=== PATIENT | male | born 2005 | race Caucasian/White ===

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

== ENCOUNTER 2025-05-01 09:57 | Emergency (ER) | payer BC, SELFPAY ==
[2025-05-01 09:58] VITALS: BP 168/113; PULSE 116; RESP 18; TEMP 35.8; O2SAT 98; BMI 30.6
[2025-05-01 10:18] VITALS: BP 138/82; PULSE 116; RESP 18; O2SAT 97
--- NOTE | 2025-05-01 10:20 | RAD_ITS ---
PROCEDURE: CHEST PA AND LATERAL 05/01/2025 REASON FOR EXAM: CHEST PAIN, SOB/ASTHMA TECHNIQUE: Frontal and lateral views of the chest. COMPARISON: None provided. RAD/Chest PA and Lateral IMPRESSION: LUNGS APPEAR CLEAR THROUGHOUT. NO PLEURAL EFFUSION OR PNEUMOTHORAX IS NOTED. THE CARDIOMEDIASTINAL SILHOUETTE IS WITHIN THE NORMAL RANGE. NO SIGNIFICANT OSSEOUS ABNORMALITY IS NOTED. NEGATIVE EXAMINATION. Reading Location: [id number]
--- NOTE | 2025-05-01 10:24 | EKG12_ITS ---
Test Reason : CP/ANXIETY Blood Pressure : */* mmHG Vent. Rate : 105 BPM Atrial Rate : 105 BPM P-R Int : 148 ms QRS Dur : 94 ms QT Int : 322 ms P-R-T Axes : 72 50 31 degrees QTcB Int : 425 ms Sinus tachycardia Otherwise normal ECG Confirmed by CAROLINA SETH, TOMEKA ([id number]), international editorial producer JARED RIVAS ([id number]) on 05/06/2025 7:11:11 AM Referred By: BB/LALA Confirmed By: TOMEKA FIGUEROA MD
[2025-05-01] MEDS: Lidocaine 2% Viscous15 ML UDC 15 ML PO (10:31)
[2025-05-01] MEDS: Mag Hydrox/Al Hydrox/Simeth 30 ML UDC PO (10:31)
--- NOTE | 2025-05-01 11:13 | EDS_ITS ---
HPI History of Present Illness Chief Complaint: Chest Pain Informant: patient Narrative Narrative: 20-year-old male woke up with wheezing this morning, he has a history of mild intermittent asthma that he rarely has to deal with. He got to work and asked someone for their inhaler to use, which he then did, and felt better. About 30 minutes later he started gradually getting retrosternal chest pain/burning that progressed. Nonpleuritic. No dyspnea. No palpitations. No radiation. Has been persistent for an hour or 2. States his wheezing is better denies any cough or fevers. [facility] Medical History Physical exam, pre-employment Anxiety Asthma Home Medications ?Medication ?Instructions ?Recorded ?Last Taken ?Type albuterol sulfate 90 mcg/actuation 1 - 2 puff inhalati on Q4H PRN PRN 05/01/25 Unknown Rx aerosol inhaler (Ventolin HFA) Wheezing ##1 Allergy/AdvReac Type Severity Reaction Status Date / Time ibuprofen Allergy Anaphylaxis Verified 05/01/25 09:57 Social History Smoking Status: Never smoker ROS ROS ED Constitutional Constitutional ED: Denies chills or fever(s) Eyes Eyes: Denies change in vision or diplopia ENT ENT ED: Denies rhinorrhea or sore throat Cardiovascular Cardiovascular: Reports as per HPI and chest pain; Denies leg edema or palpitations Respiratory/Chest Respiratory/Chest: Reports as per HPI and wheezing; Denies cough or dyspnea Gastrointestinal Gastrointestinal: Denies abdominal pain, diarrhea, nausea or vomiting Genitourinary Genitourinary ED: Denies dysuria or hematuria Musculoskeletal Musculoskeletal: Denies back pain or neck pain Integumentary Denies abscess or rash Neurologic Neurologic: Denies headache(s), paresthesias or weakness Psychiatric Psychiatric: Denies anxiety or suicidal thoughts EXAM Physical Exam Const Vital Signs: 05/01/25 09:58 05/01/25 10:12 05/01/25 10:18 Temperature 96.5 F L Temperature Source Temporal Pulse Rate 116 H 116 H Respiratory Rate 18 18 Respiratory Effort Normal Non-Labored Respiratory Pattern Normal Blood Pressure 168/113 H 138/82 H Blood Pressure Mean 131 100 Pulse Ox 98 97 Oxygen Delivery Method Room Air Room Air Positive well nourished and well developed General Appearance ED: well developed and NAD HEENT Reports moist mucous membranes normocephalic and atraumatic Eyes PERRL and EOMs intact bilaterally Neck full ROM and supple Resp normal respiratory effort and clear to auscultation bilaterally Cardio regular rate, regular rhythm and no murmurs GI non-tender and non-distended Auscultation: normoactive bowel sounds Palpation: soft Back/Spine no CVA tenderness General Back: other FROM Extremity normal to inspection General Extremety ED: Negative for edema, pulses abnormal or tenderness General Extremity: Negative for edema or pulses abnormal Neuro oriented x3, CN's II-XII intact bilaterally and no sensory deficits noted Sensorium / Orientation: awake and alert Motor Exam: strength 5/5 throughout Skin no rashes or lesions noted and no wounds MDM MDM MDM Narrative Medical decision making narrative: I obtained an EKG and a chest x-ray, 2 views of my interpretation normal, radiology in agreement, and his EKG is normal. His lungs are clear right now and he is not dyspneic or hypoxic. He is a little tachycardic but he is also very nervous and anxious. I do not think this is a PE. My suspicion is that he has reflux because he is not very good at using the albuterol inhaler which she confirms. We gave him a GI cocktail, this resulted in resolution of his discomfort, consistent with that hypothesis. At this time patient stable for discharge home, I do not think he needs steroids right now but I am going to prescribe him an inhaler to use as needed. Will also prescribe him a spacer. Radiography Diagnostic Testing: Clinical Impression(s) from Imaging Studies Chest X-Ray 05/01/25 10:20 IMPRESSION: LUNGS APPEAR CLEAR THROUGHOUT. NO PLEURAL EFFUSION OR PNEUMOTHORAX IS NOTED. THE CARDIOMEDIASTINAL SILHOUETTE IS WITHIN THE NORMAL RANGE. NO SIGNIFICANT OSSEOUS ABNORMALITY IS NOTED. NEGATIVE EXAMINATION. Reading Location: [id number] Rhythm Strip Rhythm Strip: Sinus Rhythm Rate: 105 Ectopy: None EKG Initial EKG: Attestation: I personally reviewed and interpreted this EKG as follows: Interpretation: Sinus Rhythm and No Acute Injury Pattern Comments: Nml axis & intervals; nml EKG Discharge Plan Triage Chief Complaint: Chest Pain ED Provider: Huy Morales Dx/Rx/DC Orders Clinical Impression: Chest pain due to GERD, Asthma Instructions: ED GERD (Adult), ED MDI Use Spacer or None, Asthma Prescriptions: New albuterol sulfate [Ventolin HFA] 90 mcg/actuation HFA aerosol inhaler 1 - 2 puff inhalation Q4H PRN PRN (Reason: Wheezing) Qty: 1 0RF Rx Instructions: w/ spacer Primary Care Provider: Care Physician,No Primary Referrals: Doctor,Your [Non-Staff] - As Needed Print Language: Irish Disposition Disposition: Home, Self Care
[2025-05-01 11:30] VITALS: BP 127/78; PULSE 90; RESP 18; TEMP 36.6; O2SAT 98
--- OUTSIDE RECORDS SUMMARY | 2025-05-01 12:15 | XMS RPT_ITS | CCD ---
Author Organization [facility] Care Team Providers Care Regional Sales Leader Name Role Phone Leon Ku Reyes Unavailable Unavailable Kruepke, Sujatha Primary Care Unavailable Chris Chang Attending Unavailable Kruepke, Sujatha Referring Unavailable Kruepke, Sujatha Primary Care Unavailable Edwin Madrid Attending Unavailable Krsymone, Sujatha Referring Unavailable Americo, Sujatha Primary Care Unavailable Edwin Madrid Attending Unavailable Kruepke, Sujatha Referring Unavailable Allergies Allergy Classification Reported Allergen(s) Allergy Type Date of Onset Reaction(s) Facility (1 source) Ibuprofen Drug Allergy 01-12-2024 [facility] Repository Problems Problem Classification Problem Date Documented Da te Episodic/Chronic Allergic reactions (1 source) Unspecified contact dermatitis, unspecified cause; Translations: [Unspecified contact dermatitis, unspecified cause] Onset: 01-12-2024 Episodic Results Test Name Value Interpretation Reference Range Facil ity Office Visit Reporton 2023 Office Visit Report [facility] [address] [place] [address] OFFICE VISIT Date of Service: 10/09/24 MR#: [id number] Acct: [id number] Patient: SAMANTHA ALEXANDER Rep # : [id number] : 2005 Provider: SARAH Lewis Age/Sex: 19/M Location: [facility] Status: Signed Intake Vital Signs 01/12/24 08:58 10/09/24 10:16 Height 6 ft 6 ft Weight: 216 lb BMI 29.2 BP 146/92 H Blood Pressure Location Lt brachial Position Sitting Respiration 16 Pulse 93 Pulse Source Monitor Temp 97.8 F Temp Source Temporal Pulse Oximetry (%) 98 Oxygen Delivery Method room air Intake Visit Reasons: PE 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 Chief Complaint: RASH ON CHEST FOR 3 MONTHS Allergies ibuprofen Allergy (Verified 01/12/24 08:58) Anaphylaxis Office Procedures [facility] Billing Sheet Testing Breath Alcohol in [facility]: Yes Pre-Employment Drug Screen: Yes Pre-Employment PE: Yes 10/10/24 07 Date Edwin Michael Signature: Date (if applicable) CC: Normal [facility] Office Visit Reporton 2023 Office Visit Report [facility] [address] [place] [address] OFFICE VISIT Date of Service: 10/09/24 MR#: [id number] Acct: [id number] Patient: SAMANTHA ALEXANDER Rep # : [id number] : 2005 Provider: SARAH Lewis Age/Sex: 19/M Location: [facility] Status: Signed Intake Vital Signs 01/12/24 08:58 10/09/24 10:16 Height 6 ft 6 ft Weight: 216 lb BMI 29.2 BP 146/92 H Blood Pressure Location Lt brachial Position Sitting Respiration 16 Pulse 93 Pulse Source Monitor Temp 97.8 F Temp Source Temporal Pulse Oximetry (%) 98 Oxygen Delivery Method room air Intake Visit Reasons: PE 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 Chief Complaint: RASH ON CHEST FOR 3 MONTHS Allergies ibuprofen Allergy (Verified 01/12/24 08:58) Anaphylaxis Office Procedures [facility] Billing Sheet Testing Breath Alcohol in [facility]: Yes Pre-Employment Drug Screen: Yes 10/10/24 06 Date Edwin Michael Signature: Date (if applicable) CC: Normal [facility] Urgent Care Visit Reporton 1 12-09-2023 Urgent Care Visit Report [facility] [address], [address] [place] [address] OFFICE VISIT Date of Service: 10/09/24 MR#: [id number] Acct: [id number] Name: SAMANTHA ALEXANDER Rep #: [id number] : 2005 Provider: SARAH Lewis Age/Sex: 19/M Location: [facility] Status: Signed Intake Vital Signs 01/12/24 08:58 Height 6 ft Weight: 216 lb BMI 29.2 BP 146/92 H Blood Pressure Location Lt brachial Position Sitting Respiration 16 Pulse 93 Pulse Source Monitor Temp 97.8 F Temp Source Temporal Pulse Oximetry (%) 98 Oxygen Delivery Method room air Intake Visit Reasons: PE NON DOT PHYSICAL/TIM BRUSH Chief Complaint: RASH ON CHEST FOR 3 MONTHS Allergies ibuprofen Allergy (Verified 01/12/24 08:58) Anaphylaxis PFSH Medical History (Updated 10/09/24 @ 12:47 by SARAH Milan) Physical exam, pre-employment Anxiety Asthma Social History Smoking Status: Never smoker HPI HPI Chief Complaint: RASH ON CHEST FOR 3 MONTHS Details: SAMANTHA ALEXANDER, is a 19 M who presents to the office today for Office Procedures Physical Exam Coding PE Coding Pre-employment PE: Yes Coding Level of Care Code No Charge Diagnoses Physical exam, pre-employment Z02.1 Assessment and Plan Assessment and Plan (1) Physical exam, pre-employment: Status: Acute 10/09/24 1248 Date Edwin Michael Signature: Date (if applicable) CC: Normal [facility] Urgent Care Visit Reporton 0 01-12-2024 Urgent Care Visit Report [facility] [address] , [address] [place] [address] OFFICE VISIT Date of Service: 01/12/24 MR#: [id number] Acct: [id number] Name: SAMANTHA ALEXANDER Rep #: [id number] : 2005 Provider: SARAH Alvarez Age/Sex: 19/M Location: [facility] Status: Signed Intake Vital Signs 05/04/22 12:09 01/12/24 08:58 Height 6 ft 6 ft Weight: 216 lb BMI 29.2 BP 146/92 H Blood Pressure Location Lt brachial Position Sitting Respiration 16 Pulse 93 Pulse Source Monitor Temp 97.8 F Temp Source Temporal Pulse Oximetry (%) 98 Oxygen Delivery Method room air Intake Visit Reasons: SKIN IRRITATION ON CHEST Chief Complaint: RASH ON CHEST FOR 3 MONTHS Lab Clerk Required: No Accompanied by: Self Is patient in pain?: No Allergies ibuprofen Allergy (Verified 01/12/24 08:58) Anaphylaxis Medications cephalexin 500 mg capsule 500 mg PO Q12H 10 days #20 caps 01/12/24 [Rx Confirmed 01/12/24] clotrimazole-betamet hasone 1 %-0.05 % lotion 1 applic topical BID 4 weeks #30 mL 01/12/24 [Rx Confirmed 01/12/24] prednisone 10 mg tablet 10 mg PO QDAY 12 days #30 tabs 01/12/24 [Rx Confirmed 01/12/24] PFSH Medical History Anxiety Asthma Social History Smoking Status: Never smoker HPI HPI Chief Complaint: RASH ON CHEST FOR 3 MONTHS Details: SAMANTHA ALEXANDER, is a 19 M who presents to the office today for complaint of rash on his chest for the past 3 months. Patient does state that approximately 2 months ago he was seen at a outside urgent care and given prednisone which did help with the rash on the chest however never completely went away and has flared back up more since shaving his chest recently. Patient denies fever, chills, sweats. No nausea, vomiting or diarrhea. No other associated symptoms or alleviating/aggravat ing factors. ROS Const Constitutional: No other (6 system ROS completed with pertinent findings in the HPI otherwise normal.) Exam Const General: cooperative and healthy appearing [facility] Head: normocephalic and atraumatic Ears: hearing grossly normal bilaterally Nose: external nose normal Face and sinus: normal facial exam and face symmetric Mouth: oral mucosae normal Throat: posterior oropharynx normal Resp Effort Inspection: normal respiratory effort Auscultation: Bilateral: Clear to Auscultation Cardio Rate: regular rate Rhythm: regular rhythm Skin Other: Maculopapular rash with folliculitis on the chest. Neuro General: patient alert Psych Appearance: grossly normal Mental Status: mental status grossly normal Coding Level of Care Code Off vis,new,level 3 Diagnoses Folliculitis L73.9 Dermatitis L30.9 Assessment and Plan Assessment and Plan (1) Folliculitis: Status: Acute (2) Dermatitis: Status: Acute Plan: Lotrisone, prednisone and cephalexin as prescribed today. Patient advised he needs to follow-up with dermatology in 2 to 3 weeks if no better or sooner if worse. Advised of other symptomatic management techniques as well as potential red flags and when appropriate to report to the ED. Patient verbalized understanding and agreement with all the above. Medications: New clotrimazole-betamet hasone 1-0.05 % 1 applic topical BID 4 weeks 30 mL 0RF prednisone Take 4 tabs once daily days 1-3 3 tabs once daily days 4-6 2 tabs once daily days 7-9 and 1 tab once daily days 10-12. 10 mg PO QDAY 12 days 30 tabs 0RF L25.9 - Unspecified contact dermatitis, unspecified cause cephalexin 500 mg PO Q12H 10 days 20 caps 0RF 01/12/24 0932 Date Chris SMITH Cosigner Signature: Date (if applicable) CC: Normal [facility] Progress Noteon 08-13-2020 [employer] Authentication Interface Message Text Patient ID: Samantha Alexander is a 15 y.o. male. His chief complaint(s) include: 15 YEAR WELL CHILD Assessment No diagnosis found. Plan There are no diagnoses linked to this encounter. No follow-ups on file. Subjective He is accompanied by his mother. 15 YEAR WELL CHILD Home: Samantha eats meals with family, has an adult to turn to for help and is permitted and able to make independent decisions. Samantha has no home risk identified. Education: Samantha is doing well. Eating: Samantha eats regular meals including fruits and vegetables, eats breakfast, limits fast food, drinks non-sweetened liquids and has a calcium source. Samantha does not have concerns about body appearance. Activities & Sports: Samantha has friends and has a job. Drugs: Samantha does not use tobacco, does not use drugs, does not use alcohol and does not vape. Safety: Samantha has a violence free home. Sex: The patient has never had a sexual partner. Suicidality: Samantha has ways to cope with stress. Output Urine and Stool Pattern: Urine and Stool Pattern: Normal stool pattern, normal urine pattern. Sleep Sleeping Difficulty: no difficulty sleeping Teen Anticipatory Guidance The following anticipatory guidance was reviewed during the visit: Nutrition: limit junk food/fast food and soft drinks. Safety: home safety, use safety helmet/gear with activities and don't carry or use weapons. Social: avoid or limit screen time, explore heritage and cultural diversity, parental limits and consequences for unacceptable behavior and bullying. Health: age appropriate dental care, age appropriate sleep habits, elevated noise and hearing, talk with trusted adult if feeling sad or nervous, learn to manage time and activities, be responsible for attendance/ homework/ course selection, learn about self and strengths, recognize and deal with stress, driving risks and limit sun exposure/use sunscreen. Screenings Previous Vaccine Reactions: No. Life events information was reviewed-referrals given Tuberculosis Concerns: Negative Tuberculosis Screen Concerns: no TB Risk Factors Hearing Vision Concerns: The caregiver has no concerns about the patient's hearing. The caregiver has no concerns about the patient's vision. Hyperlipidemia Concerns: Negative Hyperlipidemia Screen Concerns: no Hyperlipidemia Risk Factors Primary Care Review of Systems Objective Vital Signs 08/13/20 1313 BP: 118/66 Pulse: (!) 119 Temp: 36.8 C (98.3 F) TempSrc: Temporal Weight: 69.6 kg Height: 184 cm Body mass index is 20.56 kg/m . Physical Exam Nursing note reviewed. Constitutional: He appears well. He is active. No distress. HENT: Head: Atraumatic. Ears: Right Ear: Tympanic membrane and external ear normal. Left Ear: Tympanic membrane and external ear normal. Nose: Nose normal. Mouth/Throat: Mucous membranes are moist. Dentition is normal. Oropharynx is clear. Eyes: Conjunctivae and EOM are normal. No strabismus. Pupils are equal, round, and reactive to light. Neck: Normal range of motion. Neck supple. Thyroid normal. Cardiovascular: Normal rate, regular rhythm, S1 normal and S2 normal. Pulses are palpable. Heart murmur not heard. Pulmonary/Chest: Breath sounds normal. No respiratory distress. Exhibits no deformity. Abdominal: Soft. Bowel sounds are normal. He exhibits no distension and no mass. There is no hepatosplenomegaly. There is no abdominal tenderness. Genitourinary: Testes and penis normal. No inguinal hernia noted. Musculoskeletal: Normal range of motion. Back: He exhibits no scoliosis. Neurological: He is alert. He has normal strength. He exhibits normal muscle tone. Gait normal. Skin: Skin is warm and not pale. Findings: No rash. Vitals reviewed: Blood pressure 118/66, pulse (!) 119, temperature 36.8 C (98.3 F), temperature source Temporal, height 184 cm, weight 69.6 kg. Normal [facility] Progress Noteon 12-07-2019 [employer] Authentication Interface Message Text Patient ID: Samantha Alexander is a 14 y.o. male. His chief complaint(s) include: Other (medication check) Assessment 1. Need for vaccination 2. Asthma, intermittent, uncomplicated Plan Samantha was seen today for other. Diagnoses and all orders for this visit: Need for vaccination - Meningococcal ACWY (MENACTRA) - Influenza Vaccine 0.5 mL >= 6 mo Quadrivalent (PF) - Meningococcal B (BEXSERO) Asthma, intermittent, uncomplicated - albuterol 108 (90 Base) MCG/ACT inhaler; Inhale 2 Puffs into the lungs every 4 hours as needed for Wheezing, Shortness of Breath or Cough Use with spacer. Return for Well Visit and as needed. Subjective HPI Comments: Patient here for medication refill and to get needed immunizations. He is accompanied by his mother. Other Primary Care Review of Systems Objective Vital Signs 12/07/19 0804 BP: 129/62 Pulse: 63 Weight: 66.4 kg Height: 183 cm Body mass index is 19.83 kg/m . Physical Exam Nursing note reviewed. Constitutional: He appears well. He is active. No distress. HENT: Head: Atraumatic. Right Ear: External ear normal. Left Ear: External ear normal. Mouth/Throat: Mucous membranes are moist. Eyes: Conjunctivae are normal. Cardiovascular: Normal rate and regular rhythm. Heart murmur not heard. Pulmonary/Chest: Effort normal and breath sounds normal. There is normal air entry. No respiratory distress. Air movement is not decreased. He has no wheezes. Abdominal: Soft. Bowel sounds are normal. Neurological: He is alert. Skin: Capillary refill takes less than 3 seconds. No rash noted. Skin is warm. Vitals reviewed: Blood pressure 129/62, pulse 63, height 183 cm, weight 66.4 kg. Normal [facility] [id number] 08-15-2018 [id number] [facility] [address] [place] [id number] XRay Report Signed PRELIMINARY DRAFT REPORT UNTIL ELECTRONICALLY SIGNED 0 PATIENT: Samantha Alexander MR#: [id number] : 2005 AGE/SEX: 13 / M ADMITTED: 08/15/18 OUTSIDE LOCN: LOCATION: [facility] ATTENDIN ORDER PHYSICIAN: Leon Ku BIRAD: DATE OF SERVICE: 08/15/18 FOLLOW UP: ACCESSION NUMBERS(S): [id number] PROCEDURE(S): XR foot 3V LT REASON FOR EXAM: foot pain x3wks 0 cc: Raquel Garcia; Leon Ku; EXAMINATION: 3 XRAY VIEWS OF THE LEFT FOOT 08/15/2018 8:26 pm COMPARISON: None. HISTORY: ORDERING SYSTEM PROVIDED HISTORY: foot pain x3wks FINDINGS: No fracture or dislocation is identified. XR/XR foot 3V LT IMPRESSION: No fracture detected. D/ / Silvestre Gómez MD / Silvestre Gómez MD Interpreting Provider: Silvestre Gómez MD Normal [facility] Urgent Care Noteson 08-15-20 Urgent Care Notes [address] [address] Urgent Care Visit Notes Signed PRELIMINARY DRAFT REPORT UNTIL ELECTRONICALLY SIGNED 0 PATIENT: Samantha Alexander MR#: [id number] : 2005 AGE/SEX: 13 / M ADMITTED: 08/15/18 OUTSIDE LOCN: LOCATION: [facility] ATTENDING: cc: Raquel Garcia; Disposition Clinical Impression: Tendinitis of left foot Disposition: Home, Self-Care Condition: Good Instructions: Tendinitis (ED) Additional Instructions: If your symptoms do not improve within THREE TO FIVE (3-5) days, please follow up with your Primary Care Physician (PCP) or go to your local Emergency Room for further evaluation. Please Note: If you feel that your illness or injury will require an extended time-off period please follow up with your PCP or Occupational Health provider. The Urgent Care Clinic does not do Family Medical Leave Act (FMLA) evaluations. Prescriptions: PredniSONE [Deltasone] 20 mg PO DAILY #12 tablet Referrals: Raquel Garcia MD [Primary Care Provider] - Carli Hernandez MD [Family Provider] - History of Present Illness - General Chief Complaint: UC Lower Extremity Injury Stated Complaint: LT foot injury/pain Source: patient Mode of arrival: ambulatory Limitations: no limitations Nursing Notes Reviewed: Yes Vital Signs Reviewed: Yes - History of Present Illness Pt Subjective Complaint: foot injury (plantar flexed foot 3wks ago, felt tearing) Injury location: Left foot Onset (ago): week(s) (3) Place: other (football game, standing) Pain Severity: moderate Pain Scale: 5 Improves with: rest Worsens with: weight bearing, movement, palpation Associated symptoms: Reports: ambulatory Treatments prior to arrival: cold therapy - Related Data Previous Rx's Medication Instructions Recorded PredniSONE [Deltasone] 20 mg PO DAILY #12 tablet 08/15/18 Allergies Allergy/AdvReac Type Severity Reaction Status Date / Time No Known Allergies Allergy Verified 08/15/18 19:34 All systems ED: reviewed and negative except as stated. Constitutional: Denies: fever, chills, weakness, weight change Musculoskeletal: Reports: joint swelling, arthralgia. Denies: back pain, neck pain, myalgia Integumentary: Denies: rash, abrasion, lesions Neurological: Denies: headache, weakness, numbness, paresthesias, confusion, abnormal gait, vertigo Past Medical History - Past Medical History Source: patient Medical history: Reports: non-contributory Surgical history: Reports: no surgical history - Social History Smoking Status: Never smoker Smokeless Tobacco Status: No Alcohol use: Reports: none Drug use: Reports: none Lower Extremity Physical Exam - General Limitations: no limitations General appearance: alert, in no apparent distress - Head Head exam: atraumatic, normocephalic, normal inspection - Expanded Lower Extremity Exam Upper leg exam: Present: normal inspection, full ROM Knee exam: Present: normal inspection, full ROM Lower leg exam: Present: normal inspection, full ROM Ankle exam: Present: normal inspection, full ROM Foot/toe exam: Present: full ROM, tenderness, tenderness at base of 5th metatarsal (dorsal aspect, left foot). Absent: swelling, abrasion, laceration, ecchymosis, deformity, crepitus, dislocation, erythema, amputation, puncture wound, foreign body, calcaneal tenderness, nail avulsion, subungual hematoma Neurovascular/Tendon exam: Present: normal capillary refill Gait: antalgic - Neurological Exam Neurological exam: Present: alert, oriented X3, normal gait - Skin Skin exam: Present: warm, dry, intact, normal color Extremity Injury, Lower - Differential Diagnosis Likely: sprain/strain, fracture - Radiology Data Radiology results reviewed: Yes I reviewed the patient's radiology results. Urgent Care Charge Sheet - Level Charges Etablished Patient Charge Level: 89466-Xxcrrgptpu E M Level 3 Course Vital Signs Temperature 97.5 F L 08/15/18 19:43 Pulse Rate 90 08/15/18 19:43 Respiratory Rate 18 08/15/18 19:43 Blood Pressure 126/76 08/15/18 19:43 O2 Sat by Pulse Oximetry 99 08/15/18 19:43 Temperature 97.5 F L 08/15/18 19:43 Pulse Rate 90 08/15/18 19:43 Respiratory Rate 18 08/15/18 19:43 Blood Pressure 126/76 08/15/18 19:43 O2 Sat by Pulse Oximetry 99 08/15/18 19:43 Oxygen Delivery Oxygen Delivery Room Air 2 Documented By: Leon Ku DO Signed By: 08/15/182030 2 2 2 DD/ 16 Initialized By: [id number] [facility] Encounters Encounter Date Encounter Type Care Provider Facility Start: 10-09-2024 End: 10-09-2024 ambulatory Sujatha Driscoll Facility:[facility] Start: 01-12-2024 End: 01-12-2024 ambulatory Sujatha Driscoll Facility:[facility] Start: 08-15-2018 End: 08-15-2018 Emergency department patient visit Leon Ku Facility:[facility] Payers Date Payer Category Payer Self-pay 2018 Unknown [id number] Unknown [id number] Unknown [id number] Unknown [id number] Summary Purpose Family History No Family History Records FoundNo Family History Records FoundNo Family History Records Found Advance Directives No Advanced Directives Records FoundNo Advanced Directives Records FoundNo Advanced Directives Records Found Additional Source Comments (unrecognized sect ion and content) No Status Records FoundNo Status Records FoundNo Status Records Found INFORMATION SOURCE (unrecogn ized section and content) DATE CREATED AUTHOR 09/11/2018 [facility] DATE CREATED AUTHOR AUTHOR'S ORGANIZ ATION 08/13/2020 [facility] DATE CREATED AUTHOR AUTHOR'S ORGANIZ ATION 10/11/2024 [facility] FOR RECORDS PERTAINING TO PATIENTS WHO ARE OR HAVE BEEN ENROLLED IN A CHEMICAL DEPENDENCY/SUBSTANCEABUSE PROGRAM, SOME INFORMATION MAY BE OMITTED. This clinical summary was aggregated from multiple sources. Caution should be exercised in using it in the provision of clinical care. This summary normalizes information from multiple sources, and as a consequence, information in this document may materially change the coding, format and clinical context of patient data. In addition, data may be omitted in some cases. CLINICAL DECISIONS SHOULD BE BASED ON THE PRIMARY CLINICAL RECORDS. [facility]. provides no warranty or guarantee of the accuracy or completeness of information in this document.
--- NOTE | 2025-05-01 12:31 | CM.ED ---
Social Work Reason for visit: No PCP Patient confirmed that he does not currently have a PCP but did not feel that he needed one. Patient states he is typically healthy and if he needs [facility]. Denies need for additional resources. No further needs identified at this time. Marlin Min, MAIL CLERK, [place]
== END 2025-05-01 11:31 | disposition home or self-care (01) ==
PROVIDERS: Emergency Provider Emergency Medicine; Visit Provider Emergency Medicine
DX: R07.9 Chest pain, unspecified (principal); K21.9 Gastro-esophageal reflux disease without esophagitis; J45.909 Unspecified asthma, uncomplicated
CPT/HCPCS: 71046; 93005; 99284